=== PATIENT | female | born 1965 | race Caucasian/White ===

== ENCOUNTER 2016-09-20 00:23 | Emergency (ER) | payer OTHER ==
[~2016-09-20] VITALS: Ht 175.3 cm; Wt 89.4 kg
[~2016-09-20 00:23] MED LIST: ALPRAZOLAM0.25 M2 PO; AMLODIPINE BES2.5 MG PO; BENTYL10 MG PO; CIPRO500 MG PO; IBUPROFEN800 MG PO; LOTRIMIN AF24 GM TP; LUNESTA1 MG PO; METOCLOPRAMIDE10 MG PO; MOBIC7.5 MG PO; NORCO 5/3251 TABLET PO; PEPCID20 MG PO; PERCOCET 5/31 TABLET PO; PROZAC40 MG PO; RYBIX ODT50 MG PO; SKELAXIN400 M1 PO; SKELAXIN800 MG PO; TYLENOL WITH C1 EACH PO; ULTRAVATE15 G1 TP; XANAX0.25 MG PO; ZESTRIL,PRINIVI40 MG PO; ZESTRIL40 MG PO; ZOFRAN4 MG PO
[2016-09-20 01:03] LABS: HEMATOCRIT 42.2 % (36.0-46.0); MCH 35.3 PG (29.0-34.0); MCHC 33.9 G/DL (30.0-36.0); MCV 104.2 FL (83-99); MEAN PLAT.VOLUME 10.1 uM^3 (9.5-12.4); PLATELET COUNT 240 K/uL (156-360); RBC DIS.WIDTH-CV 13.1 % (11.8-14.6); RED BLOOD COUNT 4.05 M/uL (3.80-5.20); WHITE BLOOD COUNT 8.1 K/uL (4.1-10.2)
[2016-09-20 01:09] LABS: ADD MIUA? NO; BILIRUBIN NEGATIVE; BLOOD NEGATIVE; COLOR STRAW ((YELLOW)); GLUCOSE (STRIP) NEGATIVE; KETONES NEGATIVE; LEUKOCYTES NEGATIVE; NITRITE NEGATIVE; PROTEIN (STRIP) NEGATIVE; SPECIFIC GRAVITY 1.004 (1.000-1.030); UCUL ADDED? NO; UROBILINOGEN 0.2 MG/DL (0.2-1.0)
[2016-09-20 01:17] LABS: CHLORIDE 108 mEq/L (99-109); POTASSIUM 4.1 mEq/L (3.7-5.4); SODIUM 141 mEq/L (136-147)
[2016-09-20 01:19] LABS: GLUCOSE 97 mg/dL (70-99)
[2016-09-20 01:20] LABS: ANION GAP 12 MEQ/L (2-14)
[2016-09-20 01:21] LABS: TOTAL BILIRUBIN 0.5 mg/dL (0.0-1.0)
[2016-09-20 01:22] LABS: SERUM ETHYL ALCOHOL 224 mg/dL
[2016-09-20 01:23] LABS: ALKALINE PHOSPHATASE 99 IU/L (3-129); GFR ESTIMATE (CALCULATED) > 59 mL/min/
[2016-09-20 01:25] LABS: UREA NITROGEN (BUN) 13 mg/dL (9-23)
[2016-09-20 01:26] LABS: SALICYLATE < 5.0 MG/DL (15-30)
[2016-09-20 01:29] LABS: AMPHETAMINE NEGATIVE (500 ng/mL); BARBITURATES NEGATIVE (200 ng/mL); BENZODIAZEPINES NEGATIVE (150 ng/mL); COCAINE NEGATIVE (150 ng/mL); INTERNAL CONTROLS VALID? YES; METHADONE NEGATIVE (200 ng/mL); METHAMPHETAMINE NEGATIVE (500 ng/mL); OPIATES (MORPHINE) NEGATIVE (100 ng/mL); OXYCODONE NEGATIVE (100 ng/mL); PHENCYCLIDINE NEGATIVE (25 ng/mL); PROPOXYPHENE NEGATIVE (300 ng/mL); THC CANNABINOIDS NEGATIVE (50 ng/mL); TRICYCLIC ANTIDEPRESSANTS NEGATIVE (300 ng/mL)
[2016-09-20 01:33] LABS: QUANTITATIVE HCG < 4.0 MIU/ML
[2016-09-20 06:19] VITALS: BP 134/84
== END 2016-09-20 06:43 | disposition home or self-care (01) ==
LOC: EME → EDBD 00:23 → EME 00:23
PROVIDERS: Emergency Medicine
DX: F32.9 Major depressive disorder, single episode, unspecified (principal); T42.4X1A Poisoning by benzodiazepines, accidental (unintentional), initial encounter; F10.129 Alcohol abuse with intoxication, unspecified; Y90.7 Blood alcohol level of 200-239 mg/100 ml; V47.0XXA Car driver injured in collision with fixed or stationary object in nontraffic accident, initial encounter; I10 Essential (primary) hypertension; K21.9 Gastro-esophageal reflux disease without esophagitis; F17.200 Nicotine dependence, unspecified, uncomplicated
CPT/HCPCS: 80053; 81003; 84702; 85027; 90837; 93005; 99281; 99285; G0480

== ENCOUNTER 2016-10-18 14:51 | Emergency (ER) | payer OTHER ==
[~2016-10-18] VITALS: Ht 172.7 cm; Wt 94.0 kg
[2016-10-18] MEDS ORDERED: BACLOFEN10 MG PO (18:31)
[2016-10-18] MEDS ORDERED: TRAMADOL HCL50 MG PO (18:31)
[2016-10-18 19:04] VITALS: BP 126/88
== END 2016-10-18 18:59 | disposition home or self-care (01) ==
LOC: EME 14:51
DX: S39.012A Strain of muscle, fascia and tendon of lower back, initial encounter (principal); M46.98 Unspecified inflammatory spondylopathy, sacral and sacrococcygeal region; X50.0XXA Overexertion from strenuous movement or load, initial encounter; I10 Essential (primary) hypertension; Z87.891 Personal history of nicotine dependence
CPT/HCPCS: 99281; 99283; J1885

== ENCOUNTER 2016-11-11 16:24 | Emergency (ER) | payer OTHER ==
[~2016-11-11] VITALS: Ht 172.7 cm; Wt 91.2 kg
[~2016-11-11 16:24] MED LIST changes: +BACLOFEN10 MG PO; +TRAMADOL HCL50 MG PO
[2016-11-11 19:12] LABS: INFLUENZA A VIRAL ANTIGEN NEGATIVE; INFLUENZA B VIRAL ANTIGEN NEGATIVE
[2016-11-11] MEDS ORDERED: ALLEGRA-D 121 TABLET PO (19:18)
[2016-11-11] MEDS ORDERED: TESSALON200 MG PO (19:18)
[2016-11-11] MEDS ORDERED: FLONASE16 G1 BOTH NARES (19:18)
[2016-11-11] MEDS ORDERED: ZITHROMAX Z-PA250 MG PO (19:18)
[2016-11-11 19:40] VITALS: BP 135/110
== END 2016-11-11 19:41 | disposition home or self-care (01) ==
LOC: EME 16:24
PROVIDERS: Physician Assistant
DX: J06.9 Acute upper respiratory infection, unspecified (principal); J02.9 Acute pharyngitis, unspecified; I10 Essential (primary) hypertension; K21.9 Gastro-esophageal reflux disease without esophagitis
CPT/HCPCS: 71020; 87502; 87651 90; 99281; 99284

== ENCOUNTER 2016-11-20 14:27 | Emergency (ER) | payer SELFPAY ==
[~2016-11-20] VITALS: Ht 172.7 cm; Wt 91.1 kg
[~2016-11-20 14:27] MED LIST changes: +ALLEGRA-D 121 TABLET PO; +FLONASE16 G1 BOTH NARES; +TESSALON200 MG PO; +ZITHROMAX Z-PA250 MG PO
[2016-11-20 16:24] LABS: HEMATOCRIT 36.1 % (36.0-46.0); MCH 34.8 PG (29.0-34.0); MCHC 34.9 G/DL (30.0-36.0); MCV 99.7 FL (83-99); MEAN PLAT.VOLUME 9.9 uM^3 (9.5-12.4); PLATELET COUNT 166 K/uL (156-360); RBC DIS.WIDTH-CV 13.3 % (11.8-14.6); RBC DIS.WIDTH-SD 49.2 % (39-53); RED BLOOD COUNT 3.62 M/uL (3.80-5.20); WHITE BLOOD COUNT 8.4 K/uL (4.1-10.2)
[2016-11-20 16:31] LABS: ADD MIUA? YES; BILIRUBIN NEGATIVE; BLOOD NEGATIVE; COLOR AMBER ((YELLOW)); GLUCOSE (STRIP) NEGATIVE; KETONES NEGATIVE; LEUKOCYTES NEGATIVE; NITRITE NEGATIVE; PROTEIN (STRIP) 100
[2016-11-20 16:36] LABS: CHLORIDE 100 mEq/L (99-109); POTASSIUM 3.5 mEq/L (3.7-5.4); SODIUM 131 mEq/L (136-147)
[2016-11-20 16:38] LABS: GLUCOSE 94 mg/dL (70-99)
[2016-11-20 16:39] LABS: ANION GAP 11 MEQ/L (2-14)
[2016-11-20 16:40] LABS: TOTAL BILIRUBIN 0.7 mg/dL (0.0-1.0)
[2016-11-20 16:41] LABS: ALKALINE PHOSPHATASE 79 IU/L (3-129)
[2016-11-20 16:42] LABS: GFR ESTIMATE (CALCULATED) > 59 mL/min/
[2016-11-20 16:43] LABS: UREA NITROGEN (BUN) 12 mg/dL (9-23)
[2016-11-20 16:59] LABS: BACTERIA RARE /HPF; EPITHELIAL CELLS 4+ /HPF; MUCUS NONE SEEN /LPF; RED BLOOD CELLS 0-5 /HPF (0-5); UCUL ADDED? NO; WHITE BLOOD CELLS 0-5 /HPF (0-5)
[2016-11-20 18:00] LABS: ABS NEUTROPHIL COUNT 5.2; ATYPICAL LYMPHOCYTE 15.5 %; EOSINOPHIL ABS CT 0.2; EOSINOPHILS 1.8 % (0-5.0); INSTRUMENT ABS NEUTROPHIL CT 3.1 K/uL; LYMPHOCYTES 16.4 % (15.0-45.0); METAMYELOCYTES 0.9 %; PLAT.SUFFICIENCY ADEQUATE; SEG.NEUTROPHILS 51.8 % (46.0-76.0)
[2016-11-20 18:02] LABS: MONOSPOT (MONONUCLEOSIS SEROL) NEGATIVE
[2016-11-20 18:03] LABS: INTERNAL CONTROL VALID? YES
[2016-11-20 18:11] LABS: QUANTITATIVE HCG < 4.0 MIU/ML
[2016-11-20] MEDS ORDERED: ROBITUSSIN DM118 ML PO (19:16)
[2016-11-20 19:25] VITALS: BP 130/80
[2016-11-21 09:00] LABS: LYME DISEASE SEROLOGY SCREEN NEGATIVE (NEGATIVE)
== END 2016-11-20 19:26 | disposition home or self-care (01) ==
LOC: EME 14:27
PROVIDERS: Physician Assistant Medical
DX: R50.9 Fever, unspecified (principal); R21 Rash and other nonspecific skin eruption; I10 Essential (primary) hypertension; K21.9 Gastro-esophageal reflux disease without esophagitis; Z90.710 Acquired absence of both cervix and uterus; Z87.891 Personal history of nicotine dependence
CPT/HCPCS: 71020; 80053; 81003; 84702; 85025; 85651; 86308; 86618; 99281; 99284; J7030